=== PATIENT | female | born 1965 | race Caucasian/White ===

== ENCOUNTER → 2018-01-06 | Outpatient (CLI) | payer OTHER | LOC: BMCIMAGING 14:52 | PROVIDERS: ATTEND Orthopaedic Surgery Hand Surgery | DX: R22.32 Localized swelling, mass and lump, left upper limb (principal) ==

== ENCOUNTER 2018-05-07 20:45 | Emergency (ER) | payer OTHER ==
[2018-05-07 20:58] VITALS: BP 117/69
--- NOTE | 2018-05-07 21:13 | EDPHY ---
H & P Stated Complaint: L THIRD AND 4TH FING INJ/SMASH CAR DOOR Time Seen by Provider: 05/07/18 21:08 HPI/ROS: HPI: This is a 52-year-old female who presents with Chief Complaint: smashing her middle and ring fingers of left hand in her car door Location:middle and right left fingers Quality: Injury Duration: Prior to arrival Signs and Symptoms: No bleeding, no radiation, no numbness, no weakness, no tingling, no incontinence, + decreased range of motion, + swelling, + pain, no fever Timing: Acute Severity:8/10 Context: Patient is right-hand dominant, presents with accidentally slamming her left middle and ring fingers in her car door prior to arrival. She reports 8 /10 pain that is constant, moderate in intensity worsened with flexion touching the area. She reports that her ring finger has swollen 2 times the size of her left ring finger. She has removed her wedding ring. She denies any paresthesias, radiculopathy. Modifying Factors: None Comment: ROS: see HPI Constitutional: No fever, no chills, no weight loss Eyes: No blurred vision Respiratory: No shortness of breath, no cough Cardiovascular: No chest pain Gastrointestinal: No nausea, no vomiting no diarrhea Genitourinary: No dysuria Extremities: No myalgias Neurologic: No weakness, no numbness Skin: No rashes Hematologic: No bruising, no bleeding MEDICAL/SURGICAL/SOCIAL HISTORY: Medical history: Generally healthy. Does not take any regular medications. Surgical history: Denies Social history: Employed, . CONSTITUTIONAL: Extremely polite and cooperative middle-aged female, awake and alert, no obvious distress EXTREMITIES: 2/2 pulses, strength 5/5, left ring finger shows significant swelling at the PIP joint with tenderness with palpation. Superficial abrasion noted on palmar aspect at the PIP joint. Left middle finger shows significant swelling at the PIP joint with associated tenderness. DIP/PIP/MCP flexion/ extension intact with good light touch sensation. no deformities, no clubbing, no cyanosis or edema. NEUROLOGICAL: no focal neuro deficits. GCS 15. Light touch sensation intact. SKIN: Warm and dry, no erythema. no rash. Good capillary refill. Source: Patient Exam Limitations: No limitations - Personal History LMP (Females 10-55): Post Menopausal Current Tetanus Diphtheria and Acellular Pertussis (TDAP): Yes - Medical/Surgical History Hx Asthma: No Hx Chronic Respiratory Disease: No Hx Diabetes: No Hx Cardiac Disease: No Hx Renal Disease: No Hx Cirrhosis: No Hx Alcoholism: No Hx HIV/AIDS: No Hx Splenectomy or Spleen Trauma: No Other PMH: DENIES - Social History Smoking Status: Never smoked Constitutional: Initial Vital Signs Temperature (C) 36.6 C 05/07/18 20:55 Heart Rate 73 05/07/18 20:55 Respiratory Rate 16 05/07/18 20:55 Blood Pressure 117/69 05/07/18 20:55 O2 Sat (%) 95 05/07/18 20:55 O2 Delivery Mode Room Air Allergies/Adverse Reactions: No Known Allergies Allergy (Unverified 05/07/18 20:55) Home Medications: Medication Instructions Recorded NK [No Known Home Meds] 05/07/18 Medical Decision Making - Diagnostics Imaging Results: Imaging Impressions Hand X-Ray 05/07/18 21:13 Impression: No evidence for acute osseous abnormality left hand. ED Course/Re-evaluation: Left hand x-ray ordered and ice pack applied. X-ray my read shows no fracture, dislocation. Superficial abrasion cleaned with mild soap and water. Bacitracin and clean sterile dressing applied. Advised supportive care. No signs of neurovascular compromise/tenting of skin/compartment syndrome/ extremities and joints examined above and below area of concern and are neurovascularly intact. This patient was seen under the supervision of my secondary supervising physician. I evaluated care for this patient independently. Discussed this patient with Dr. Mehta. Differential Diagnosis: Differential diagnosis includes but is not limited to phalanx fracture, tendon rupture, nerve injury, laceration. Departure - Departure Disposition: Home, Routine, Self-Care Clinical Impression: Crushing injury of left middle finger, initial encounter, Crushing injury of left ring finger, initial encounter Contusion, fingers Qualifiers: Encounter type: initial encounter Finger: unspecified finger Damage to nail status: without damage Qualified Code(s): S60.00XA - Contusion of unspecified finger without damage to nail, initial encounter Condition: Good Instructions: Contusion in Adults (ED), Crush Injury (ED) Additional Instructions: Keep the dressing dry and in place for 48 hours. After 48 hours, you may remove the dressing; wash the site daily with mild soap and water; then pat dry. Take Tylenol 650 mg every 4 hours and/or Ibuprofen 600 mg every 8 hours with food as needed for pain. Apply ice for 30 minutes at a time; 2-3 times per day for the next 1-2 days. The x-rays obtained in the emergency department today demonstrate no evidence of an obvious fracture. Return to the ER immediately if you experience new or worsening pain, discoloration, numbness, tingling, or any other symptoms that concern you. Referrals: PCP Not In,Dictionary [Medical Doctor] - Follow Up Only If Needed
== END 2018-05-07 21:55 | disposition home or self-care (01) ==
DX: S60.032A Contusion of left middle finger without damage to nail, initial encounter (principal); S60.042A Contusion of left ring finger without damage to nail, initial encounter; W23.1XXA Caught, crushed, jammed, or pinched between stationary objects, initial encounter; Y92.810 Car as the place of occurrence of the external cause